=== PATIENT | male | born 1935 | race Caucasian/White ===

== ENCOUNTER → 2018-02-22 | Outpatient (CLI) | payer MEDICARE, BC, OTHER ==
[~2018-02-22] MED LIST: AMLODIPINE-BEN1 EAC5 PO; ATENOLOL 100MG100 M2 PO; BENAZEPRIL HCL40 MG PO; COLACE100 MG PO; COUMADIN 5 MG TA5 M1 PO; FUROSEMIDE 80 M80 M1 PO; GLUCOSAMINE CH1 EAC7 PO; KLOR-CON PO; MULTIVITAMINS PO; PRADAXA75 MG
== END ==
LOC: M.MRI 10:46
DX: C44.629 Squamous cell carcinoma of skin of left upper limb, including shoulder (principal); I25.10 Atherosclerotic heart disease of native coronary artery without angina pectoris; I50.9 Heart failure, unspecified; I27.20 Pulmonary hypertension, unspecified